=== PATIENT | male | born 1940 | race African-American/Black ===

== ENCOUNTER 2017-05-28 15:03 | Emergency (ER) | payer MEDICARE ==
[~2017-05-28] VITALS: Ht 177.8 cm; Wt 87.1 kg
[2017-05-28 15:34] LABS: HEMATOCRIT 32.3 % (39.2-51.8); HEMOGLOBIN 10.9 g/dL (13.7-18.0); WHITE BLOOD COUNT 9.9 x10^3/uL (3.4-10)
[2017-05-28 15:46] LABS: BLOOD UREA NITROGEN 35 mg/dL (7-18)
[2017-05-28 15:51] LABS: ASPARTATE AMINO TRANSFERASE 10 U/L (15-37)
[2017-05-28 15:53] LABS: IS PT STATUS REG ER OR PRE ER? YES
[2017-05-28] MEDS ORDERED: SODIUM CHLORIDE 0.9%, 500ML IVBOLUS ONE (16:00)
[2017-05-28 17:56] LABS: PATH.CAST-FLAG NOT PRESENT; SPERM-FLAG NOT PRESENT; SRC-FLAG NOT PRESENT; XTAL-FLAG NOT PRESENT; YLC-FLAG NOT PRESENT
[2017-05-28 17:58] VITALS: BP 165/98
== END 2017-05-28 18:02 | disposition home or self-care (01) ==
LOC: ED 17:30
DX: N28.9 Disorder of kidney and ureter, unspecified (principal); I10 Essential (primary) hypertension; Z86.73 Personal history of transient ischemic attack (TIA), and cerebral infarction without residual deficits; Z85.46 Personal history of malignant neoplasm of prostate; F17.200 Nicotine dependence, unspecified, uncomplicated; W06.XXXA Fall from bed, initial encounter; Y93.89 Activity, other specified; Y92.009 Unspecified place in unspecified non-institutional (private) residence as the place of occurrence of the external cause; Y99.9 Unspecified external cause status
CPT/HCPCS: 36415; 70450; 71010; 72125; 80053; 81001; 82550; 83735; 84484; 85025; 93005; 96360; 96361; 99285; J7040

== ENCOUNTER 2019-03-27 13:07 | Emergency (ER) | payer MEDICARE ==
[~2019-03-27] VITALS: Ht 177.8 cm; Wt 83.0 kg
[2019-03-27 13:16] VITALS: BP 143/106
== END 2019-03-27 14:20 | disposition home or self-care (01) ==
LOC: ED 14:09
DX: I10 Essential (primary) hypertension (principal); R60.0 Localized edema; W01.0XXA Fall on same level from slipping, tripping and stumbling without subsequent striking against object, initial encounter; Y93.89 Activity, other specified; Y92.89 Other specified places as the place of occurrence of the external cause; Y99.8 Other external cause status
CPT/HCPCS: 99283